=== PATIENT | male | born 1965 | race Caucasian/White ===

== ENCOUNTER → 2024-10-19 15:13 | Outpatient (REF) | payer OTHER, SELFPAY | LOC: HWRAD 15:13 | PROVIDERS: ATTENDING PHYSICIAN Nurse Practitioner Family; FAMILY PHYSICIAN Internal Medicine | DX: M54.50 Low back pain, unspecified (principal); M25.532 Pain in left wrist | CPT/HCPCS: 72110; 73110 ==